=== PATIENT | female | born 1940 | race Two or more races ===

== ENCOUNTER 2025-11-17 15:57 | Emergency (ER) | payer OTHER ==
[~2025-11-17] VITALS: Ht 152.4 cm; Wt 62.6 kg
[2025-11-17 16:16] VITALS: BP 100/60; O2SAT 99
[2025-11-17] MEDS ORDERED: 0.9 % SODIUM CHLORIDE 1,000 ML IV ONE (16:45)
[2025-11-17] MEDS ORDERED: ASA81 MG PO (16:45)
[2025-11-17] MEDS ORDERED: PEPCID AC20 MG PO (16:46)
[2025-11-17] MEDS ORDERED: ELIQUIS5 MG (16:46)
[2025-11-17] MEDS ORDERED: ARICEPT10 MG PO (16:46)
[2025-11-17] MEDS ORDERED: OLANZAPINE5 MG PO (16:47)
[2025-11-17] MEDS ORDERED: MONTELUKAST SODI4 M1 (16:47)
[2025-11-17] MEDS ORDERED: SIMVASTATIN40 MG PO (16:48)
[2025-11-17] MEDS ORDERED: TEMAZEPAM15 MG PO (16:48)
[2025-11-17 17:29] LABS: BASO % 0.4 % (0.1-1.2); EOS # 0.15 (0.04-0.54); EOS % 1.9 % (0.7-7.0); LYMPH # 1.46 (1.18-3.74); LYMPH % 18.5 % (19.3-53.1); MEAN PLATELET VOLUME 9.90 fl (9.4-12.4); MONO # 0.92 (0.24-0.82); MONO % 11.6 % (4.7-12.5); NEUT # 5.33 (1.56-6.13); NEUT % 67.5 % (34.0-71.1); RED CELL DISTRIBUTION WIDTH 13.7 % (11.6-14.4)
[2025-11-17 17:48] LABS: INR 1.08
[2025-11-17 18:11] LABS: ALT/SGPT 16.0 U/L (12-78); AST/SGOT 21.0 U/L (15-37); BILIRUBIN TOTAL 1.5 mg/dL (0.3-1.2); BUN CREA RATIO 20.0 (7.0-25.0); CREATININE SERUM 1.29 mg/dL (0.55-1.02); GFR 39.18; GLOBULINA 3.8 G/DL (2.4-3.5); GLUCOSE FASTING 111.0 mg/dL (65-100); OSMOLALITY SERUM 298.0 MOSM/KG (275-295)
[2025-11-17] MEDS ORDERED: BENZONATATE200 M1 PO (21:51)
[2025-11-17] MEDS ORDERED: SINGULAIR10 MG PO (22:12)
== END 2025-11-17 22:58 | disposition home or self-care (01) ==
LOC: ER 15:57
PROVIDERS: General Practice
DX: R55 Syncope and collapse (principal); Z88.6 Allergy status to analgesic agent; I48.91 Unspecified atrial fibrillation; Z86.73 Personal history of transient ischemic attack (TIA), and cerebral infarction without residual deficits
CPT/HCPCS: 36415; 70450; 71045; 93005; 96365; 96366; 99284; J7030